=== PATIENT | male | born 1955 ===

== ENCOUNTER 2022-10-20 10:24 | Day surgery (SDC) | payer OTHER ==
[2022-10-17 11:31] LABS: Potassium 4.5 mEq/L (3.5-5.1)
--- NOTE | 2022-10-17 13:38 | EKG ---
Test Date: 2022-10-17 Test Time: 10:24:35 Lumber Handler: MCKINLEY MEASUREMENT RESULTS: Intervals: Rate: 71 WV: 134 QRSD: 84 QT: 370 QTc: 402 [place]: P: 70 WV: 134 QRS: 75 T: 72 INTERPRETIVE STATEMENTS: Normal sinus rhythm Minimal voltage criteria for LVH, may be normal variant Borderline ECG Compared to ECG 05/22/2003 15:08:00 Left ventricular hypertrophy now present Electronically Signed On 10-17-22 13:37:53 CDT by Donnell Moon
[2022-10-20] MEDS ORDERED: Ringers Lactate 1,000 ML IV ONE (10:54)
[2022-10-20] MEDS ORDERED: CEFAZOLIN SODIUM 1 GM/VIAL ONE (10:54)
[2022-10-20] MEDS ORDERED: propofoL 200 MG/20 ML VIAL IV ONE (11:28)
[2022-10-20] MEDS ORDERED: FENTANYL CITR 100 MCG/2 ML ONE ×2 (11:28→14:06)
[2022-10-20] MEDS ORDERED: MIDAZOLAM HCL 2 MG/2 ML INJ ONE (11:28)
[2022-10-20] MEDS ORDERED: ONDANSETRON 4 MG/2 ML VIAL ONE (11:29)
[2022-10-20] MEDS ORDERED: ROCURONIUM 50 MG/5 ML VIAL IV ONE (11:29)
[2022-10-20] MEDS ORDERED: LIDOCAINE 2% MPF 5 ML VIAL ONE (11:29)
[2022-10-20] MEDS ORDERED: KETOROLAC 30 MG/ML INJ ONE ×2 (11:29→13:32)
[2022-10-20] MEDS ORDERED: BUPIVACAINE 0.25% PF 10 ML VIAL ONE (11:45)
[2022-10-20] MEDS ORDERED: GLYCOPYRROLATE 0.2 MG/ML SYR ONE ×2 (13:34→14:12)
--- NOTE | 2022-10-20 13:34 | P.OP ---
Preoperative diagnosis: LEFT inguinal hernia Postoperative diagnosis: LEFT inguinal hernia Primary procedure: Open LEFT inguinal Hernia repair with mesh Anesthesia: GETA + Local Estimated blood loss: <5cc Specimen: none Findings: indirect inguinal hernia Complications: None Implants: Medium Bard Perfix plug and patch Transferred to: Recovery Room Condition: Good
[2022-10-20] MEDS ORDERED: NEOSTIGMINE 1 MG/ML -10 ML VIAL ONE (14:12)
[2022-10-20 14:43] VITALS: O2SAT 99
[2022-10-20] MEDS ORDERED: HYDROCODONE/APAP 5/325 MG TAB ONE (15:08)
[2022-10-20 15:54] VITALS: BP 132/76
[2022-10-20 16:06] VITALS: TEMP 97.8
--- NOTE | 2022-10-21 01:17 | OP ---
Date of Procedure: 10/20/2022 Surgeon: Carlos Guy MD, Preoperative Diagnosis: Left inguinal hernia. Postoperative Diagnosis: Left inguinal hernia. Procedure: Open left inguinal hernia repair with mesh. Anesthesia: General endotracheal plus local with 0.25% Marcaine. Estimated Blood Loss: Less than 5 cc. Specimen: None. Findings: Indirect inguinal hernia. Complications: None. Implants: Medium Bard PerFix plug and patch hernia repair system. Disposition: The patient was transferred to recovery room in good condition. Procedure In Detail: After informed consent was obtained, the patient was brought to the operating r oom and prepped and draped in usual sterile fashion. After adequate anesthesia was achieved, I made an inguinal incision down through subcutaneous tissues after appropriately anesthetizing skin with 0. 25% Marcaine. Dissection was continued down through the subcutaneous tissues. I then used electroca utery to dissect down through Camper fat and Gretel fascia to expose the external oblique aponeurosis . This was opened sharply using a 15 blade down following the direction of the fibers and then opene d in its entirety using Metzenbaum scissors, protecting the ilioinguinal and iliohypogastric nerve th roughout. Clamps were placed on both the lateral aspects of the internal oblique aponeurosis. I the n dissected the spermatic cord and structures circumferentially around and a Rita drain was passed around the spermatic cord and structures. Dissection was continued down towards the deep inguinal r ing where an indirect inguinal hernia was noted on the medial aspect, medial to the spermatic cord an d structures. I then dissected circumferentially down and pushed the hernia defect into the preperit osman position and after imbricating the sac, I then placed a medium Bard PerFix plug into the preper itoneal space without incident or complication. At this point, I secured it circumferentially around the deep ring using 2-0 PDS sutures in a circumferential fashion. I then sized a Bard PerFix patch appropriately and placed it on the medial aspect of the pubic tubercle, securing it with a 2-0 PDS farr ture and then on the medial and lateral shelving edge of the internal oblique aponeurosis in the unde rsurface of the inguinal ligament and reconstructed the deep inguinal ring at this point and trimmed the edges of the mesh at this point. The area was copiously irrigated and suctioned out completely d ry. At this point, the external oblique aponeurosis was then reapproximated using 3-0 Vicryl suture in a running fashion protecting the ilioinguinal nerve throughout. The deep dermal tissues were then irrigated once again. The deep dermal plane, Camper fat, and Gretel fascia were closed en bloc usin g 3-0 Vicryl suture and the skin was closed using a 4-0 Monocryl in a subcuticular fashion and Dermab ond was placed over top. The patient tolerated the procedure without evidence of any complication an d transferred to PACU in good condition. All counts were correct at the end of the case. LAW/RADAMES Voice ID: [id number] Report ID: [id number]
== END 2022-10-20 16:13 | disposition home or self-care (01) ==
LOC: OR 10:24
PROVIDERS: ATTEND Surgery
PROC: 0YU60JZ Supplement Left Inguinal Region with Synthetic Substitute, Open Approach (ICD-10-PCS; principal; 2022-10-20 11:45)
DX: K40.90 Unilateral inguinal hernia, without obstruction or gangrene, not specified as recurrent (principal); Z85.46 Personal history of malignant neoplasm of prostate
CPT/HCPCS: 93005; 80048; 36415; 49505; J2710; J2001; J2250; J3010 ×2; J2405; J7120; J0690; J2704